=== PATIENT | male | born 1955 | race Caucasian/White ===

== ENCOUNTER → 2016-09-04 | Outpatient (CLI) | payer OTHER ==
[2016-09-04 11:26] LABS: BASOPHILS # (AUTO) 0.07 10*3/UL; EOSINOPHILS % (AUTO) 4.2 % (0-8); HEMATOCRIT 40.3 % (42.0-52.0); HEMOGLOBIN 12.9 g/dL (14.0-18.0); IMM GRAN % (AUTO) 0.3 % (0-5); IMM GRAN# (AUTO) 0.02 10*3/UL; LYMPHOCYTES % (AUTO) 31.8 % (10-50); MEAN CORPUSCULAR HEMOGLOBIN 26.3 PG (27-31); MEAN PLATELET VOLUME 11.2 FL (7.4-12.2); MONOCYTES # (AUTO) 0.82 10*3/UL (0.3-0.8); MONOCYTES % (AUTO) 11.9 % (5-15); NEUTROPHILS # (AUTO) 3.51 10*3/UL; NEUTROPHILS % (AUTO) 50.8 % (50-80); RDW COEFFICIENT OF VARIATION 13.7 % (11.5-14.5); RED BLOOD COUNT 4.91 10^6/uL (4.70-6.10); WHITE BLOOD COUNT 6.91 10^3/uL (4.8-10.8)
[2016-09-04 11:27] LABS: PLATELET MORPHOLOGY COMMENT NORMAL MORPHOLOGY (NORM)
[2016-09-04 12:16] LABS: HEMOGLOBIN A1C 6.64 % (4.2-6.0); MEAN BLOOD GLUCOSE (CALC) 135.112 mg/dL
== END ==
LOC: LAB 11:09
PROVIDERS: ATTEND Physician Assistant Medical
DX: E11.9 Type 2 diabetes mellitus without complications (principal); D50.0 Iron deficiency anemia secondary to blood loss (chronic)
CPT/HCPCS: 36415; 83036; 85025

== ENCOUNTER → 2017-02-01 | Outpatient (CLI) | payer OTHER ==
[2017-02-01 11:52] LABS: HEMATOCRIT 34.6 % (42.0-52.0); HEMOGLOBIN 10.6 g/dL (14.0-18.0); MEAN CORPUSCULAR HEMOGLOBIN 23.6 PG (27-31); MEAN CORPUSCULAR HGB CONC 30.6 g/dL (33-37); MEAN CORPUSCULAR VOLUME 76.9 FL (80-90); MEAN PLATELET VOLUME 11.1 FL (7.4-12.2); RED BLOOD COUNT 4.5 10^6/uL (4.70-6.10)
[2017-02-01 12:09] LABS: BUN/CREATININE RATIO 17.69 (6-20); CALCIUM 9.5 mg/dL (8.7-10.7)
== END ==
LOC: LAB 11:30
PROVIDERS: ATTEND Internal Medicine Cardiovascular Disease
DX: I20.0 Unstable angina (principal)
CPT/HCPCS: 36415; 80048; 85027; 85610

== ENCOUNTER 2017-07-25 09:55 | Observation (INO) ==
[2017-07-25] MEDS ORDERED: ASPIRIN 81 MG (BABY) CHEWABLE TABLET PO ONE (10:18)
[2017-07-25] MEDS ORDERED: ONDANSETRON 4 MG/2 ML VIAL IVP ONE (10:18)
[2017-07-25] MEDS ORDERED: Sodium Chloride 0.9% 1,000 ML PRIMARY IV ONE (10:18)
[2017-07-25 10:23] LABS: BASOPHILS # (AUTO) 0.03 10*3/UL; BASOPHILS % (AUTO) 0.6 % (0-1); EOSINOPHILS # (AUTO) 0.13 10*3/UL; EOSINOPHILS % (AUTO) 2.4 % (0-8); Hematocrit [HCT] 40.1 % (42.0-52.0); Hemoglobin [HGB] 12.5 g/dL (14.0-18.0); LYMPHOCYTES # (AUTO) 1.56 10*3/uL; MEAN CORPUSCULAR HEMOGLOBIN 25.1 PG (27-31); MEAN CORPUSCULAR HGB CONC 31.2 g/dL (33-37); MEAN CORPUSCULAR VOLUME 80.5 FL (80-90); MEAN PLATELET VOLUME 10.8 FL (7.4-12.2); MONOCYTES # (AUTO) 0.66 10*3/UL (0.3-0.8); MONOCYTES % (AUTO) 12.3 % (5-15); NEUTROPHILS # (AUTO) 2.97 10*3/UL; NEUTROPHILS % (AUTO) 55.2 % (50-80); RED BLOOD COUNT 4.98 10^6/uL (4.70-6.10)
--- NOTE | 2017-07-25 10:24 | PDOC ---
Chest Pain HPI - General Chief Complaint: Chest Pain Stated Complaint: chest pain Date Seen by Provider: 07/25/17 Time Seen by Provider: 10:19 Source: Patient Exam Limitations: POSITIVE: No limitations Treatment Prior to Arrival: REPORTS: None Nurse's Notes Reviewed & Considered: Yes - History of Present Illness Initial Comments: This is a very pleasant well-developed, well-nourished, 62-year-old male, complaining of chest pain. Patient with a 5 day history of chest pain that has escalated today. He describes his pain as pressure with radiation to his back. He denies any shortness of breath. He does have nausea, no vomiting, he has chronic diarrhea. Patient is also having clammy skin. He denies any headache, no sore throat, no abdominal pain, no rashes, no ataxia or focal localizing neurological signs. He was seen in the emergency room approximately 3 weeks ago for the same and sent home. He did have a recent cardiac catheter done with stent placement 5 and was started on Plavix. Patient's initial blood pressure, here in the emergency room, was 194 systolic. Upon repeat, his blood pressure was 154 systolic. Body Location Affected: REPORTS: Chest Timing: REPORTS: Gradual, Intermittent Duration: <1 week Severity: Mild Context: DENIES: Sleep, Rest, Emotional Upset, Activity, Exertion, Other Quality: REPORTS: Pressure Radiation: REPORTS: Back Associated Symptoms: REPORTS: Nausea, Diaphoresis, Palpitations Modifying Factors: improves with: None Reported Similar Symptoms Previously: Yes Recently seen/treated/hospitalized: Yes (seen here in the emergency room 3 weeks ago for the same.) Any Prior Injuries Related to Current Complaint?: Yes (5 cardiac stents) - Patient Home Medications Home Medications: Home Medications Glucometer 1 ea QID #1 ea 11/08/12 Sitagliptin Phos/Metformin HCl [Janumet 50-1,000 Mg Tablet] 1 tab PO BID #60 tab 05/11/16 carvedilol 6.25 mg tablet 6.25 mg PO BID tab 03/13/17 clopidogrel 75 mg tablet 75 mg PO DAILY tab 03/13/17 isosorbide mononitrate ER 30 mg tablet,extended release 24 hr 30 mg PO QAM 03/13 lisinopril 20 mg tablet 20 mg PO QD #90 tab 03/13/17 cetirizine 10 mg tablet 10 mg PO QDAY PRN #30 tab 06/11/17 famotidine 40 mg tablet 40 mg PO QHS #90 tab 06/11/17 Atorvastatin Calcium 80 mg PO BEDTIME 07/25/17 Magnesium Oxide [Magnesium] 250 mg PO DAILY 07/25/17 - Patient Allergies Allergies/Adverse Reactions: Allergies 3 Allergy/AdvReac Type Severity Reaction Status Date / Time albuterol Allergy Severe hypertensive, Verified 07/25/17 10:08 tachycardia niacin [Niacin] Allergy Severe ITCHING Verified 07/25/17 10:08 Penicillins Allergy Severe anaphalacti Verified 07/25/17 10:08 c horses, strawberries Allergy Severe hives Uncoded 07/25/17 10:08 Past Medical History - heen HEENT History: Hard of Hearing Additional HEENT History: WEARS GLASSES Cardiovascular History: Hypertension, Previous CO, Hyperlipidemia Additional Cardiovasular History: HAD CORONARY STENTS PLACED Respiratory History: Snoring, Other (please comment) Additional Respiratory History: CHRONIC COUGH FROM GULF WAR Gastrointestinal History: GERD Genitourinary History: Denies History Endocrine History: Type 2 Diabetes (oral) Musculoskeletal History: Arthritis, Back Pain Prosthesis or Implant: No Additional Musculoskeletal History: LAMINECTOMY LOWER BACK Neurological History: Denies History Blood Disorders: Denies History Psychiatric History: Denies History, PTSD History of Sexually Transmitted Diseases: No Cancer History: Other (please comment) 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 ROS - Limitations ROS Limitations: No Limitations Constitution: REPORTS: Diaphoresis Cardiovascular: REPORTS: Chest Pain, Heart Palpitations Respiratory: REPORTS: Denies Resp Symptoms Neurological: REPORTS: Denies Neuro Symptoms Gastrointestinal: REPORTS: Nausea, Diarrhea Endocrine: REPORTS: Elevated Glucose, Low Glucose Musculoskeletal: REPORTS: Denies MS Symptoms Genitourinary: REPORTS: Denies Symptoms Eyes: REPORTS: Denies Symptoms ENT: REPORTS: Denies Symptoms Skin: REPORTS: Denies Skin Symptoms Lympathic: REPORTS: Denies Lympathic Symptoms Immunologic: POSITIVE: Denies Symptoms Psychiatric: POSITIVE: Denies Psych Symptoms Chest Pain PE - General Appearance General Appearance: REPORTS: Alert, Cooperative, No Acute Distress, No Evidence of Trauma - HEENT HEENT: POSITIVE: Head Inspection Nml, Eyes Inspection Nml, Ears Inspection Nml, Nose Inspection Nml, Oral/Dental Inspect. Nml, Pharynx Inspect. Nml, PERRL, EOMI - Neck Neck: REPORTS: Normal Inspection - Respiratory Respiratory: REPORTS: No Respiratory Distress, Breath Sounds Normal, Chest Non- Tender - Cardiovascular Cardiovascular: REPORTS: Regular Rate and Rhythm, Heart Sounds Normal, Strong Pulses, No Murmur, No Gallop, No Friction Rub, No JVD Peripheral Pulses: Radial (R): 4+ - Abdomen Abdomen: Soft: (All Quadrants), Normal Bowel Sounds: (All Quadrants), Denies Tenderness: (All Quadrants), No Splenomegaly: (All Quadrants), No Hepatomegaly: (All Quadrants), No Guarding: (All Quadrants), No Rebound: (All Quadrants), No Palpable Pulse: (All Quadrants), No Palpabale Mass: (All Quadrants), No Distention: (All Quadrants), No Rigidity: (All Quadrants) - Skin Skin: REPORTS: Intact, Normal For Race, Warm, Dry, No Rash - Extremities Extremity: Non-Tender: (All Extremities), Normal ROM: (All Extremities), Normal Inspection: (All Extremities), Pelvis Stable: (All Extremities), Edema / Swelling: (All Extremities) (+1 edema present upper and lower extremities) - Neurological / Psychological Neurological: POSITIVE: Oriented X3, Motor Normal, Sensation Normal Chest Pain Progress - Results Reviewed by me Xrays/CTs/US Reviewed by me: Yes Discussed with Radiologist: Yes Lab Results Reviewed by Me: Yes CBC and BMP: 07/25/17 10:21 07/25/17 10:21 EKG Interpretation:: POSITIVE: Normal Sinus Rhythm - Patient's Progress Pain Medication Addressed: POSITIVE: No Re-Examine Time: 10:57 Status: POSITIVE: Improved Quality Measure Initiative: CP/AMI: POSITIVE: EKG Quality Measure Initiative: CAP: POSITIVE: CXR or CT - Consult Consult (If Yes, Name of Consulting MD & Time Called): Yes (Dr. Bliss 10:56 hrs) Consulting MD will see pt:: POSITIVE: [facility] Admit Counseled: POSITIVE: Patient, RE: Lab Results, RE: Radiology Results, RE: DX Patient Care Time - Estimated PCT Patient Care Time (In Minutes): 30 Vital Signs - Recent Vital Signs Vital Signs: Vital Signs (Last 8 hours) Temp Pulse Resp BP Pulse Ox 07/25/17 09:55 97.2 F 84 18 194/99 95 - VS Reviewed Vital Signs Reviewed: Yes Discharge Clinical Impression: Chest pain Discharge Disposition: Admit to Inpatient Condition: Stable Patient Instructions Given at Discharge: Chest Pain (ED) Follow Up With: GABRIELLE EMERY [Primary Care Provider] - Date Decision to Admit to Inpatient: 07/25/17 Time Decision to Admit to Inpatient: 10:57
[2017-07-25 10:42] LABS: PLATELET MORPHOLOGY COMMENT NORMAL MORPHOLOGY (NORM); RBC MORPHOLOGY COMMENT NORMAL MORPHOLOGY (NORM); WBC MORPHOLOGY COMMENT NORMAL MORPHOLOGY (NORM)
--- NOTE | 2017-07-25 10:42 | EKG ---
[address] [address] Measurements Intervals [place] Rate: 73 P: 50 [place]: 188 QRS: 31 QRSD: 102 T: 55 QT: 372 QTc: 398 Interpretive Statements SINUS RHYTHM Compared to ECG 06/30/2017 13:57:53 No significant changes Electronically Signed On 07-25-17 12:14:34 MST by Curly Jacobo [id number]
[2017-07-25 10:43] LABS: BUN/CREATININE RATIO 17.69 (6-20); SERUM ALBUMIN 4.7 g/dL (3.5-4.8)
[2017-07-25] MEDS ORDERED: NITROGLYCERIN 0.4 MG SL TAB (BOTTLE OF 3) SL ONE (11:01)
--- NOTE | 2017-07-25 11:09 | EKG ---
[address] [address] Measurements Intervals [place] Rate: 73 P: 52 MT: 198 QRS: 38 QRSD: 93 T: 48 QT: 386 QTc: 412 Interpretive Statements SINUS RHYTHM Compared to ECG 07/25/2017 10:03:55 No significant changes Electronically Signed On 07-25-17 12:14:13 MST by Curly Jacobo [email or web address]
--- NOTE | 2017-07-25 11:13 | DI ---
AP CHEST X-RAY, 07/25/2017 10:18 AM : Clinical History: Chest pain Previous Exam: June 30, 2017 There is no acute soft tissue or bony abnormality. Heart size is normal. Lungs are clear. Mediastinal structures are normal. There are no pulmonary nodules. Overlying EKG leads are seen. Reading: Normal chest x-ray.
[2017-07-25] MEDS ORDERED: diphenhydrAMINE 25 MG CAPSULE PO PRN (12:03)
[2017-07-25] MEDS ORDERED: CALCIUM CARBONATE 500 MG (TUMS) CHEWABLE TABLET PO PRN (12:03)
[2017-07-25] MEDS ORDERED: NORMAL SALINE 10 ML SYRINGE FLUSH IVP PRN (12:03)
[2017-07-25] MEDS ORDERED: LIDOCAINE W/ SODIUM BICARB 0.5 ML SYR SUBD PRN (12:03)
--- NOTE | 2017-07-25 14:02 | PDOC ---
HPI - History of Present Illness History of Present Illness: This very nice 62-year-old gentleman with past medical history for coronary artery disease also has had multiple stents 5 total had a catheter last year and received the his latest stent he is been having chest pain off and on for the last 2 weeks could be at rest could be well he exacerbates. Today in the ER it's been a little worse also accompanied by his hands getting clammy did receive a sublingual nitroglycerin. His initial troponin was negative. I did speak to his pipe tester in [place] and they advised that if the next 2 troponins are negative we may proceed with a Lexiscan stress test if there is a bump in his troponins were transferred to [place] for possible catheter I let the patient know and agrees Past Medical History Medical History: Hypertension, [place] 10 years ago stents 36 years ago GERD, diabetes, chronic cough and go for Surgical History: Laminectomy, right inguinal hernia, appendectomy, left elbow surgery, colonoscopy Tobacco Use: Former Smoker In the Past 12 Months, Have Used or Abuse Any of the Following Substance: None Medication / Allergies Home Medications: Home Medications 3 Medication Instructions Recorded Confirmed Type Glucometer 1 ea QID #1 ea 11/08/12 07/25/17 Clinic Sitagliptin Phos/Metformin HCl 1 tab PO BID #60 tab 05/11/16 07/25/17 Rx [Janumet 50-1,000 Mg Tablet] carvedilol 6.25 mg tablet 6.25 mg PO BID tab 03/13/17 07/25/17 History clopidogrel 75 mg tablet 75 mg PO DAILY tab 03/13/17 07/25/17 History isosorbide mononitrate ER 30 mg 30 mg PO QAM 03/13/17 07/25/17 History tablet,extended release 24 hr lisinopril 20 mg tablet 20 mg PO QD #90 tab 03/13/17 07/25/17 Rx cetirizine 10 mg tablet 10 mg PO QDAY PRN #30 tab 06/11/17 07/25/17 Rx famotidine 40 mg tablet 40 mg PO QHS #90 tab 06/11/17 07/25/17 Rx Atorvastatin Calcium 80 mg PO BEDTIME 07/25/17 07/25/17 History Magnesium Oxide [Magnesium] 250 mg PO DAILY 07/25/17 07/25/17 History Allergies/Adverse Reactions: Allergies 3 Allergy/AdvReac Type Severity Reaction Status Date / Time albuterol Allergy Severe hypertensive, Verified 07/25/17 10:08 tachycardia niacin [Niacin] Allergy Severe ITCHING Verified 07/25/17 10:08 Penicillins Allergy Severe anaphalacti Verified 07/25/17 10:08 c horses, strawberries Allergy Severe hives Uncoded 07/25/17 10:08 Review of Systems - Respiratory Respiratory: DENIES: Negative System Review, Cough, Sputum, Dyspnea At Rest, Dyspnea with Exertion, Pleuritic Pain, Hemoptysis, Wheezing, Other, See HPI - Cardiovascular Cardiovascular: REPORTS: Chest Pain - Gastrointestinal Gastrointestinal / Abdominal: DENIES: Negative System Review, Nausea, Vomiting, Diarrhea, Constipation, Abdominal Pain, Bloody Stool, Poor Appetite, Heartburn, Regurgitation, Bloating, Lactose Intolerance, Melena, Bright Red Blood per Rectum, Other, See HPI Exam - Vitals Vital Signs: Vital Signs Temperature 97.1 F Temperature Source Temporal Artery Scan Pulse Rate [Pulse Oximeter 76 Right] Pulse Rate 71 Respiratory Rate 18 Blood Pressure [Left Arm] 151/86 Blood Pressure 139/82 Pulse Ox 96 Oxygen Delivery Method Room Air Height 5 ft 9 in Weight 224 lb 9.6 oz - General General Appearance: No Acute Distress, Cooperative - Head Head Exam: Normal Inspection, Normocephalic, Atraumatic - Eye Eye Exam: POSITIVE: Normal Appearance, PERRL, EOMI, No Scleral Icterus - Respiratory Respiratory Exam: POSITIVE: Clear to Auscultation - Bilaterally, Breathing Non Labored, Normal To Percussion, Normal to Percussion and Palpation - Cardiovascular Cardiovascular Exam: POSITIVE: RRR, No Murmur, No Clicks, No Gallops, No Rubs, PMI Non-Displaced - GI/Abdominal GI/Abdominal Exam: POSITIVE: Normal Bowel Sounds, Non Tender, Non Distended, Soft, No Masses, No Hepatomegaly, No Splenomegaly, No Organomegaly - External Exam: POSITIVE: Deferred Exam: POSITIVE: Deferred - Extremities Extremities Exam: POSITIVE: Normal Inspection, Full ROM, Normal Capillary Refill , No Clubbing Present, No Edema Present, No Cyanosis Present, Negative Yanely's sign, Dosalis Pedis Pulses - Stong & Regular Results - Labs CBC and BMP: 07/25/17 10:21 07/25/17 10:21 Assessment and Plan - Patient Problems (1) Chest pain Current Visit: Yes Status: Acute Comment: Thus far troponins are negative I aborted CK-MB and repeat troponin if positive we'll contact [facility] as recommended by his pipe tester if negative proceed with Lexiscan stress test Code(s): R07.9 - Chest pain, unspecified
[2017-07-25] MEDS: METFORMIN HCL PO SCH (20:42)
[2017-07-25] MEDS: CARVEDILOL 6.25 MG TABLET PO SCH (20:42)
[2017-07-25] MEDS: SITAGLIPTIN PHOS PO SCH (20:42)
[2017-07-25] MEDS ORDERED: ATORVASTATIN 40 MG TABLET PO SCH (21:00)
[2017-07-25] MEDS ORDERED: FAMOTIDINE 40 MG TABLET PO SCH (21:00)
[2017-07-26] MEDS ORDERED: MORPHINE SULFATE 2 MG/1 ML IVP PRN (00:29)
[2017-07-26 05:15] LABS: BLOOD UREA NITROGEN 22 mg/dL (7-22); BUN/CREATININE RATIO 18.33 (6-20); CHOL/HDL RATIO 2.55 RATIO (0-4.0); SERUM CHOLESTEROL 74 mg/dL (120-200)
[2017-07-26] MEDS ORDERED: MAGNESIUM OXIDE 400 MG TABLET PO SCH (07:00)
[2017-07-26] MEDS ORDERED: LISINOPRIL 20 MG TABLET PO SCH (09:00)
[2017-07-26] MEDS ORDERED: ISOSORBIDE MONONITRATE 30 MG SR 24H TABLET PO SCH (09:00)
[2017-07-26] MEDS ORDERED: CLOPIDOGREL 75 MG TABLET PO SCH (09:00)
[2017-07-26] MEDS: SITAGLIPTIN PHOS PO SCH (10:15)
[2017-07-26] MEDS: METFORMIN HCL PO SCH (10:15)
[2017-07-26] MEDS: CARVEDILOL 6.25 MG TABLET PO SCH (10:15)
--- NOTE | 2017-07-26 10:21 | DCSUMMARY ---
Hospitalization Summary Hospital Course: Final Discharge Diagnosis: Current Visit Problems Problem Status Onset Code Chest pain Acute R07.9 Diagnostic Data, Laboratory Data, and Procedures of Signifigance: Abnormal Lab Results (Last 24 Hours) Range/Units 07/25/17 07/25/17 07/26/17 10:21 10:21 04:21 Hgb (14.0-18.0) g/dL 12.5 L Hct (42.0-52.0) % 40.1 L MCH (27-31) PG 25.1 L MCHC (33-37) g/dL 31.2 L RDW Coeff of Ann (11.5-14.5) % 16.6 H Carbon Dioxide (23-33) meq/L 21 L BUN (7-22) mg/dL 23 H Glucose (78-110) mg/dL 127 H Calculated Osmolality (267-292) mOsm/kg 301.0 H 299.0 H Total Bilirubin (0.3-1.2) mg/dL 1.3 H AST (21-57) IU/L 82 H Total Protein (6.1-8.0) g/dL 8.2 H Cholesterol (120-200) mg/dL 74 L HDL Cholesterol (40-150) mg/dL 29 L History and Physical pertinent to Admission: Course of Hospitalization: Is a very nice 62-year-old gentleman with past medical history significant for coronary artery disease and multiple stents in [place]. Had a heart catheter last year and that is his latest stent. Comes in with 2 weeks of intermittent chest pain yesterday since it was worse decided to go to the ER patient was admitted for rule out troponins remained negative I did discuss the case with his finish grinder in [place] we have done the Lexiscan stress test which was negative for ischemia he will call and follow up with his finish grinder any possible medication changes.This could represent heart burn and i dont want to up his imdur without cards advice. On the date of discharge, the patient was examined: Gen.: [No acute distress, alert, nontoxic] Heart: [Regular rate and rhythm, no murmurs, clicks, gallops, or rubs] Lungs: [Clear to auscultation bilaterally, breathing is nonlabored] Abdomen/GI: [Normal tones on auscultation, soft, nontender, nondistended] Musculoskeletal/extremities: [No clubbing, cyanosis, or edema] Vitals reviewed and are listed below Vital Signs (24 hrs) Temp Pulse Pulse Resp BP BP Pulse Ox 07/26/17 07:00 70 07/26/17 06:37 97.7 F 76 18 125/74 93 07/26/17 04:58 97.3 F 76 18 103/53 96 07/26/17 03:00 69 07/25/17 23:36 98.4 F 88 20 150/72 95 07/25/17 23:00 62 07/25/17 20:18 97.0 F 90 20 141/81 96 07/25/17 19:00 85 07/25/17 17:00 98.5 F 81 18 131/72 96 07/25/17 15:00 81 07/25/17 13:22 96 07/25/17 12:57 97.1 F 71 18 139/82 95 07/25/17 12:27 97.7 F 76 18 151/86 94 Assessment and Plan: 1. As per discharge assessments above 2. Disposition: home 3. Condition on discharge, stable and improved. 4. Diet: regular diet 5. Activities: resume normal activities 6. Follow-Up: 1. [PCP] and Cardiology in [facility] pt will make his own apt 2. 7. Medications at the Time of Discharge: Home Medications 3 Medication Instructions Recorded Confirmed Type Glucometer 1 ea QID #1 ea 11/08/12 07/25/17 Clinic Sitagliptin Phos/Metformin HCl 1 tab PO BID #60 tab 05/11/16 07/25/17 Rx [Janumet 50-1,000 mg Tablet] carvedilol 6.25 mg tablet 6.25 mg PO BID tab 03/13/17 07/25/17 History clopidogrel 75 mg tablet 75 mg PO DAILY tab 03/13/17 07/25/17 History isosorbide mononitrate ER 30 mg 30 mg PO QAM 03/13/17 07/25/17 History tablet,extended release 24 hr lisinopril 20 mg tablet 20 mg PO QD #90 tab 03/13/17 07/25/17 Rx cetirizine 10 mg tablet 10 mg PO QDAY PRN #30 tab 06/11/17 07/25/17 Rx famotidine 40 mg tablet 40 mg PO QHS #90 tab 06/11/17 07/25/17 Rx Atorvastatin Calcium 80 mg PO BEDTIME 07/25/17 07/25/17 History Magnesium Oxide [Magnesium] 250 mg PO DAILY 07/25/17 07/25/17 History Aspirin Chewable Tab 324 mg PO ONCE (ED) tab 07/26/17 Rx Calcium Carbonate [Tums] 1 - 2 tab PO QID PRN tab.chew 07/26/17 Rx Nitroglycerin SL 0.4mg Tab 1 tab SL ONCE (ED) bottle 07/26/17 Rx [Nitrostat SL 0.4mg Tab] diphenhydrAMINE HCl [Benadryl] 25 mg PO DAILY PRN cap 07/26/17 Rx 8. Time, care, counseling and coordination of care for this discharge is greater than 30 minutes. Exam - Vitals Vital Signs: Vital Signs Temperature 97.7 F Temperature Source Temporal Artery Scan Pulse Rate [Pulse Oximeter 76 Right] Pulse Rate 70 Respiratory Rate 18 Blood Pressure [Left Arm] 125/74 Blood Pressure 139/82 Pulse Ox 93 Oxygen Delivery Method Room Air Height 5 ft 9 in Weight 223 lb 12.8 oz Patient Problems - Patient Problem List (1) Chest pain Current Visit: Yes Status: Acute Code(s): R07.9 - Chest pain, unspecified Category: Medical
[2017-07-26 11:19] VITALS: BP 127/78; RESP 17; TEMP 97; O2SAT 95
--- NOTE | 2017-07-26 12:00 | STRESSTEST ---
[facility] Interpretive Statements very nice 62 YO gentlement with PMHX of cad with multiple stents , comes in with chest pain.trops remained negative ., no acute changes on stress portion will await pictures Electronically Signed On 07-30-17 08:43:46 MST by Kiran Mcneil MD [id number]
--- NOTE | 2017-07-26 14:36 | DI ---
2 DAY LEXISCAN STRESS & REST MYOCARDIAL PERFUSION SCANS, 07/25/2017 12:03 PM : Clinical History: Chest pain Previous Exam: None at this facility. The patient was stressed by Dr. Jake Bliss The standard Lexiscan protocol was used. Please see the Doctor's report. At the designated time, 37.6 mCi of 99Tc-sestimibi was injected IV. Stress gated tomograms were acquired within one hour of the i njection. For the resting scans, 37.9 mCi was injected IV and resting gated tomograms were acquired in similar fashion. Stress scans were performed on July 25; the resting scans were performed on July 26. Quantitative and qualitative analyses were performed. Quantitative analysis was performed with the [facility] [id number] protocols. Very low dose limited CT scans of the chest are o btained through the level of the heart for attenuation correction of the gated stress and rest cardia c SPECT data. Non-attenuated and attenuated scans were processed for review, and the attenuated scans were used for final interpretation of this study. Review of the raw data images and vice president quality files indicate that these series of examinations ar e of excellent quality. Stress and rest left ventricular chamber sizes are normal. Stress and rest LV EF are 76 % and 83 %, respectively. There is no evidence of ischemia. Wall motion is normal. Transient ischemic dilatation ratio is 1.1, with a normal range up to 1.22 for patients stre ssed with the Owen protocol and up to 1.33 for patients stressed with the Lexiscan protocol. The very low dose CT scans through the level of the heart multiple coronary artery calcifications. Th ere is no adenopathy or evidence of lung nodules. Reading: Normal study with no evidence of ischemia. Normal wall motion and normal ejection fractions.
== END 2017-07-26 15:20 | disposition home or self-care (01) ==
LOC: ER 09:55 → MED/SURG 09:55 → UNDODISOB 07-26 15:20
PROVIDERS: ADMIT Internal Medicine; ATTEND Internal Medicine